=== PATIENT | female | born 1945 | race Caucasian/White ===

== ENCOUNTER → 2016-08-24 | Outpatient (CLI) | payer MEDICARE | END | disposition home or self-care (01) | LOC: CFH 14:22 | PROVIDERS: ATTEND Family Medicine | DX: R92.2 Inconclusive mammogram (principal) | CPT/HCPCS: G0206 ==

== ENCOUNTER → 2016-09-15 | Outpatient (CLI) | payer MEDICARE ==
[~2016-09-15] MED LIST: GADOBUTROL 7.5 MMOL/7.5 ML PFS ONE
== END | disposition home or self-care (01) ==
LOC: CFH 07:37
PROVIDERS: ATTEND Specialist
DX: G31.89 Other specified degenerative diseases of nervous system (principal); G43.109 Migraine with aura, not intractable, without status migrainosus; G93.89 Other specified disorders of brain
CPT/HCPCS: 70544; 70553; A9585

== ENCOUNTER 2017-07-10 09:44 | Emergency (ER) | payer MEDICARE ==
[~2017-07-10] VITALS: Ht 165.1 cm; Wt 59.0 kg
[2017-07-10] MEDS ORDERED: SODIUM CHLORIDE 0.9% 1,000 ML IV ONE (10:28)
[2017-07-10] MEDS ORDERED: SODIUM CHLORIDE FLUSH 10ML SYR IVF ONE (10:30)
[2017-07-10] MEDS ORDERED: ONDANSETRON 2MG/ML, 2ML IVPush ONE (10:30)
[2017-07-10] MEDS ORDERED: KETOROLAC 30 MG/1 ML IVPush ONE (10:30)
[2017-07-10 10:54] LABS: BASOPHILS # (AUTO) 0.03 x10^3/uL (0-0.1); BASOPHILS % (AUTO) 0 % (0-1); EOSINOPHILS # (AUTO) 0.03 x10^3/uL (0-0.4); EOSINOPHILS % (AUTO) 0 % (1-7); LYMPHOCYTES # (AUTO) 1.29 x10^3/uL (1-3.4); LYMPHOCYTES % (AUTO) 14 % (22-44); MD NO; MEAN CORPUSCULAR HEMOGLOBIN 30.7 pg (27.0-34.8); MEAN CORPUSCULAR HGB CONC 33.4 g/dL (32.4-35.8); MEAN CORPUSCULAR VOLUME 91.9 fL (80-100); MEAN PLATELET VOLUME 8.5 fL (7.4-10.4); MONOCYTES # (AUTO) 0.26 x10^3/uL (0.2-0.8); MONOCYTES % (AUTO) 3 % (2-9); NEUTROPHILS # (AUTO) 7.89 x10^3/uL (1.8-6.8); NEUTROPHILS % (AUTO) 83 % (42-75); PLATELET COUNT 283 x10^3/uL (130-400); RED BLOOD COUNT 4.49 x10^6/uL (3.82-5.3); RED CELL DISTRIBUTION WIDTH 14.1 % (9.6-15.2)
[2017-07-10] MEDS ORDERED: ONDANSETRON 2MG/ML, 2ML ONE (11:00)
[2017-07-10] MEDS ORDERED: KETOROLAC 30 MG/1 ML ONE (11:00)
[2017-07-10 11:07] LABS: ALBUMIN 3.4 g/dL (3.4-5.0); ANION GAP 7 mmol/L (5-15); CALCIUM 8.8 mg/dL (8.5-10.1); CHLORIDE 106 mmol/L (98-107)
[2017-07-10 11:10] LABS: ALANINE AMINOTRANSFERASE 31 U/L (12-78); ALKALINE PHOSPHATASE 83 U/L (45-117); BILIRUBIN,TOTAL 0.4 mg/dL (0.2-1.0); CREATININE 0.94 mg/dL (0.55-1.02); TOTAL PROTEIN 7.7 g/dL (6.4-8.2)
[2017-07-10 12:02] LABS: CULTURE INDICATED? YES; MICROSCOPIC INDICATED
[2017-07-10 12:23] VITALS: BP 140/62
== END 2017-07-10 12:57 | disposition home or self-care (01) ==
LOC: ED 12:40
DX: N20.0 Calculus of kidney (principal); R31.9 Hematuria, unspecified
CPT/HCPCS: 36415; 74176; 80053; 81001; 85025; 87077; 87086; 87186; 99285

== ENCOUNTER 2017-07-11 17:08 | Emergency (ER) | payer MEDICARE ==
[~2017-07-11] VITALS: Ht 165.1 cm; Wt 61.0 kg
[2017-07-11 18:43] LABS: BASOPHILS # (AUTO) 0.03 x10^3/uL (0-0.1); BASOPHILS % (AUTO) 0 % (0-1); EOSINOPHILS % (AUTO) 1 % (1-7); LYMPHOCYTES # (AUTO) 1.86 x10^3/uL (1-3.4); LYMPHOCYTES % (AUTO) 17 % (22-44); MD NO; MEAN CORPUSCULAR HEMOGLOBIN 30.7 pg (27.0-34.8); MEAN CORPUSCULAR HGB CONC 32.8 g/dL (32.4-35.8); MEAN CORPUSCULAR VOLUME 93.4 fL (80-100); MEAN PLATELET VOLUME 8.5 fL (7.4-10.4); MONOCYTES # (AUTO) 0.57 x10^3/uL (0.2-0.8); MONOCYTES % (AUTO) 5 % (2-9); NEUTROPHILS # (AUTO) 8.27 x10^3/uL (1.8-6.8); NEUTROPHILS % (AUTO) 76 % (42-75); PLATELET COUNT 306 x10^3/uL (130-400); RED BLOOD COUNT 4.58 x10^6/uL (3.82-5.3); RED CELL DISTRIBUTION WIDTH 14.1 % (9.6-15.2)
[2017-07-11 18:44] LABS: ALANINE AMINOTRANSFERASE 33 U/L (12-78); ALBUMIN 3.6 g/dL (3.4-5.0); ANION GAP 5 mmol/L (5-15); CALCIUM 8.8 mg/dL (8.5-10.1); CHLORIDE 109 mmol/L (98-107)
[2017-07-11 18:47] LABS: ALKALINE PHOSPHATASE 93 U/L (45-117); BILIRUBIN,TOTAL 0.2 mg/dL (0.2-1.0); CREATININE 0.98 mg/dL (0.55-1.02); TOTAL PROTEIN 8.1 g/dL (6.4-8.2)
[2017-07-11 19:33] LABS: CULTURE INDICATED? YES; MICROSCOPIC INDICATED
[2017-07-11] MEDS ORDERED: ONDANSETRON 2MG/ML, 2ML ONE (22:25)
[2017-07-11] MEDS ORDERED: KETOROLAC 30 MG/1 ML ONE (22:25)
[2017-07-11] MEDS ORDERED: HYDROmorphone 1 MG/ML, 1ML IVPush PRN (22:30)
[2017-07-11] MEDS ORDERED: ONDANSETRON 2MG/ML, 2ML IVPush ONE (22:30)
[2017-07-11] MEDS ORDERED: KETOROLAC 30 MG/1 ML IVPush ONE (22:30)
[2017-07-11] MEDS ORDERED: SODIUM CHLORIDE FLUSH 10ML SYR IVF ONE (22:30)
[2017-07-11] MEDS ORDERED: SODIUM CHLORIDE 0.9% 1,000ML IVBOLUS ONE (22:30)
[2017-07-11 22:44] VITALS: BP 177/87
== END 2017-07-12 00:18 | disposition home or self-care (01) ==
LOC: ED 22:36
DX: N20.0 Calculus of kidney (principal); F17.200 Nicotine dependence, unspecified, uncomplicated; Z88.0 Allergy status to penicillin
CPT/HCPCS: 36415; 76770; 80053; 81001; 85025; 87077; 87086; 87186; 96361; 96374; 99285; J1885; J7030

== ENCOUNTER 2017-07-18 15:15 | Day surgery (SDC) | payer MEDICARE ==
[~2017-07-18] VITALS: Ht 165.1 cm; Wt 59.2 kg
[2017-07-18] MEDS ORDERED: LACTATED RINGERS 1,000 ML IV SCH (15:45)
[2017-07-18] MEDS ORDERED: vitamin d PO (15:57)
[2017-07-18] MEDS ORDERED: RED600CA2 PO (15:57)
[2017-07-18] MEDS ORDERED: calcium PO (15:57)
[2017-07-18] MEDS ORDERED: fish oil PO (15:57)
[2017-07-18] MEDS ORDERED: SULF1TAB24 PO (15:57)
[2017-07-18] MEDS ORDERED: NAPR-850 PO (15:57)
[2017-07-18] MEDS ORDERED: vitamin k PO (15:57)
[2017-07-18] MEDS ORDERED: TAMS0.4C2 PO (15:57)
[2017-07-18 16:00] VITALS: BP 122/65
[2017-07-18] MEDS ORDERED: PLEASE ENTER HEIGHT AND WEIGHT MC SCH (16:00)
[2017-07-18] MEDS ORDERED: FENTANYL PF 100 MCG/2ML ONE (17:29)
[2017-07-18] MEDS ORDERED: ONDANSETRON 2MG/ML, 2ML IVPush PRN (18:00)
[2017-07-18] MEDS ORDERED: ACETAMINOPHEN 325 MG TABLET PO PRN (18:00)
[2017-07-18] MEDS ORDERED: MIDAZOLAM 1 MG/ML, 2ML IV PRN (18:00)
[2017-07-18] MEDS ORDERED: ALBUTEROL/IPRATROPIUM 2.5MG/0.5MG, 3 ML NPPB PRN (18:00)
[2017-07-18] MEDS ORDERED: LABETALOL 5MG/ML, 20ML IV PRN (18:00)
[2017-07-18] MEDS ORDERED: hydrALAzine 20 MG/ML, 1ML IV PRN (18:00)
[2017-07-18] MEDS ORDERED: FENTANYL PF 100 MCG/2ML IV PRN (18:00)
[2017-07-18] MEDS ORDERED: OXYcodone 5 MG/5 ML ORAL.SOL UDC PO PRN (18:00)
[2017-07-18] MEDS ORDERED: HYDROmorphone 1 MG/ML, 1ML IV PRN (18:00)
[2017-07-18] MEDS ORDERED: PROMETHAZINE 25 MG/ML, 1ML IV PRN (18:00)
[2017-07-18] MEDS ORDERED: PROMETHAZINE 12.5 MG SUPP PR PRN (18:00)
[2017-07-18] MEDS ORDERED: PROPOFOL 10 MG/ML, 20ML ONE (18:47)
[2017-07-18] MEDS ORDERED: ONDANSETRON 2MG/ML, 2ML ONE (18:47)
[2017-07-18] MEDS ORDERED: CEFAZOLIN 1,000 MG ONE (18:47)
[2017-07-18] MEDS ORDERED: DEXAMETHASONE 4 MG/ML, 1ML ONE (18:47)
[2017-07-18] MEDS ORDERED: ACETAMINOPHEN 650 MG/20.3 ML UDC ONE (19:27)
[2017-07-18] MEDS ORDERED: OXYcodone 5 MG/5 ML ORAL.SOL UDC ONE (19:27)
[2017-07-18 20:41] VITALS: BP 115/68
== END 2017-07-18 22:00 ==
LOC: OR 15:15 → 4NOR 20:00 → OR 22:00
PROVIDERS: ATTEND Urology
DX: N20.0 Calculus of kidney (principal); Z88.0 Allergy status to penicillin; K21.9 Gastro-esophageal reflux disease without esophagitis
CPT/HCPCS: 52356; 74018; 76001; 82360; 88300; 93005; C1758; C2617; J0690; J1100; J2405; J2704; J3010; J7120

== ENCOUNTER 2018-09-26 12:16 | Outpatient (CLI) | payer MEDICARE ==
[~2018-09-26 12:16] MED LIST changes: -GADOBUTROL 7.5 MMOL/7.5 ML PFS ONE; +NAPR-850 PO; +RED600CA2 PO; +SULF1TAB24 PO; +TAMS0.4C2 PO; +calcium PO; +fish oil PO; +vitamin d PO; +vitamin k PO
== END 2018-09-26 23:59 | disposition home or self-care (01) ==
LOC: CFH 12:16
PROVIDERS: ATTEND Family Medicine
DX: N64.4 Mastodynia (principal)
CPT/HCPCS: 76641; 77066; G0279

== ENCOUNTER 2019-11-08 11:26 | Outpatient (CLI) | payer MEDICARE | END 2019-11-08 23:59 | disposition home or self-care (01) | LOC: CFH 11:26 | PROVIDERS: ATTEND Family Medicine | DX: Z12.31 Encounter for screening mammogram for malignant neoplasm of breast (principal) | CPT/HCPCS: 77067 ==

== ENCOUNTER 2020-10-05 16:07 | Emergency (ER) | payer MEDICARE ==
[~2020-10-05] VITALS: Ht 157.5 cm; Wt 59.0 kg
[~2020-10-05 16:07] MED LIST changes: +SULF-23 PO; -SULF1TAB24 PO
--- NOTE | 2020-10-05 16:41 | NUR ---
PT BROUGHT BACK TO ROOM FROM [facility] VIA WHEELCHAIR. PT STATED THAT SHE WAS HIKING TODAY AND HER DOG RAN IN TO HER LEFT KNEE. PT CO SEVERE PAIN AND IS UNABLE TO BEAR WEIGHT ON LEG. MILD SWELLING NOTED. PT DENIES FALLING.
--- NOTE | 2020-10-05 17:13 | NUR ---
PT TO XRAY
--- NOTE | 2020-10-05 17:50 | NUR ---
PT TO CT
--- NOTE | 2020-10-05 18:53 | NUR ---
REPORT TO [employer]IT[employer] MAN
--- NOTE | 2020-10-05 18:58 | NUR ---
RECEIVED REPORT FROM STEVEN QURESHI TO ASSUME CARE.
--- NOTE | 2020-10-05 19:33 | NUR ---
PT RECEIVING SPLINT AND CRUTCHES FROM EMT.
[2020-10-05 19:45] VITALS: BP 130/60
--- NOTE | 2020-10-05 20:30 | NUR ---
Patient given discharge instructions and they have confirmed that they understand the instructions. Patient ambulatory with crutches. Wheelchair to discharge desk and to vehicle. Pt had no questions at time of discharge. Pt questioned various times if she felt safe to drive. Pt stated she felt safte to drive that she lived close and she would be fine. Pt notified by this RN to call to get a taxi if she felt at anytime that she was unable to drive and offered a taxi multiple times. Pt had phone within reach in her vehicle and waved good bye as she left.
== END 2020-10-05 20:19 | disposition home or self-care (01) ==
LOC: ED 20:16
DX: S82.102A Unspecified fracture of upper end of left tibia, initial encounter for closed fracture (principal); X58.XXXA Exposure to other specified factors, initial encounter; Y93.89 Activity, other specified; Y92.89 Other specified places as the place of occurrence of the external cause; Y99.8 Other external cause status
CPT/HCPCS: 29505; 99284